=== PATIENT | female | born 1955 | race Caucasian/White ===

== ENCOUNTER 2017-09-02 13:36 | Day surgery (SDC) | payer OTHER ==
[2017-09-02] MEDS ORDERED: MIDAZOLAM 1 MG/ML 2 ML INJ ×2 (16:22)
[2017-09-02] MEDS ORDERED: FENTAnyl 50 MCG/ML VIAL (16:22)
== END 2017-09-02 16:47 | disposition home or self-care (01) ==
LOC: GIL 13:36
DX: Z12.11 Encounter for screening for malignant neoplasm of colon (principal); D12.0 Benign neoplasm of cecum; E78.00 Pure hypercholesterolemia, unspecified; I10 Essential (primary) hypertension
CPT/HCPCS: 45380; 88305